=== PATIENT | male | born 1990 | race Caucasian/White ===

== ENCOUNTER 2018-01-24 22:54 | Emergency (ER) | payer SELFPAY ==
[2018-01-24 23:02] VITALS: BP 143/96; PULSE 91; RESP 16; TEMP 98.2; O2SAT 99
--- NOTE | 2018-01-24 23:23 | ED PDOC ---
HPI: CCC, URI, Sore Throat Time Seen by Provider: 01/24/18 23:10 Chief Complaint (Nursing): Shortness Of Breath History Per: Patient History/Exam Limitations: no limitations Onset/Duration Of Symptoms: Days Sick Contacts (Context): None Additional Complaint(s): 27 year old male with no PMHx presenting with sore throat and possible allergic reaction. Patient states that he ate shrimp 2 days ago and had a sore throat sensation but no rash or difficulty breathing, states he took benadryl and it went away. States he yesterday ate a sauce that had shrimp in it and had a similar reaction but resolved again after benadryl. Patient states that today he's had a sore throat, pain in the lymph nodes, and a foreign body sensation in his throat that he describes as mucus feeling. No fevers. No allergies. PMD: Dr. Higginbotham Past Medical History Reviewed: Historical Data, Nursing Documentation, Vital Signs Vital Signs: Last Vital Signs Temp 98.2 F 01/24/18 23:07 Pulse 91 H 01/24/18 23:07 Resp 16 01/24/18 23:07 BP 143/96 H 01/24/18 23:07 Pulse Ox 99 01/24/18 23:07 - Medical History PMH: No Chronic Diseases - Family History Family History: States: Unknown Family Hx - Home Medications Home Medications: Ambulatory Orders Medication Instructions Recorded Naproxen 375 mg PO Q8 PRN #21 tab 05/27/15 diaZEpam [Valium] 5 mg PO Q6 PRN #14 tab 05/27/15 Ibuprofen [Motrin Tab] 600 mg PO Q6 #30 tab 01/24/18 Prednisone [Deltasone] 40 mg PO DAILY 3 Days #6 tablet 01/24/18 - Allergies Allergies/Adverse Reactions: Allergies Allergy/AdvReac Type Severity Reaction Status Date / Time shrimp Allergy ITCHING Verified 01/24/18 23:09 Review of Systems ROS Statement: Except As Marked, All Systems Reviewed And Found Negative ENT: Positive for: Throat Pain Physical Exam - Reviewed Nursing Documentation Reviewed: Yes Vital Signs Reviewed: Yes - Physical Exam Appears: Positive for: Well, Non-toxic, No Acute Distress Head Exam: Positive for: ATRAUMATIC, NORMAL INSPECTION, NORMOCEPHALIC Skin: Positive for: Normal Color, Warm, DRY Eye Exam: Positive for: EOMI, Normal appearance, PERRL ENT: Positive for: Normal ENT Inspection. Negative for: Pharyngeal Erythema, Tonsillar Exudate, Tonsillar Swelling Neck: Positive for: Normal, Painless ROM Cardiovascular/Chest: Positive for: Regular Rate, Rhythm Respiratory: Positive for: CNT, Normal Breath Sounds Gastrointestinal/Abdominal: Positive for: Normal Exam, Soft Back: Positive for: Normal Inspection Extremity: Positive for: Normal ROM Neurologic/Psych: Positive for: Alert, Oriented - ECG O2 Sat by Pulse Oximetry: 99 Pulse Ox Interpretation: Normal Medical Decision Making Medical Decision MakinPM PAtient presenting with sore throat and reported possible allergy to shrimp --Patient is very well appearing with normal vitals and physical exam, no distress --Advised patient that his symptoms are more consistent with a URI than an allergic reaction --Reassurance provided to patient, advised NSAIDs and steroids --Advised patient to followup with Dr. Higginbotham in 2 days for checkup --Very well appearing upon discharge Disposition - Clinical Impression Clinical Impression: URI (upper respiratory infection) - Patient ED Disposition Is Patient to be Admitted: No - Disposition Referrals: Lars Higginbotham MD [Staff Provider] - Disposition: Routine/Home Disposition Time: 23:25 Condition: GOOD Prescriptions: Ibuprofen [Motrin Tab] 600 mg PO Q6 #30 tab Prednisone [Deltasone] 40 mg PO DAILY 3 Days #6 tablet Instructions: Viral Upper Respiratory Infection, Adult (DC), Sore Throat in Adults
--- NOTE | 2018-01-27 11:46 | CARD ---
APPROVED REPORT Date of service: 01/24/2018 EKG Measurement Heart [id number] <Conclusion> Normal sinus rhythm Rightward axis Borderline ECG
== END 2018-01-24 23:46 | disposition home or self-care (01) ==
LOC: H.ER 22:54
DX: J06.9 Acute upper respiratory infection, unspecified (principal)